=== PATIENT | male | born 1975 | race Caucasian/White ===

== ENCOUNTER 2016-10-05 12:26 | Emergency (ER) | payer SELFPAY ==
[~2016-10-05] VITALS: Ht 175.3 cm; Wt 83.9 kg
[2016-10-05 12:35] VITALS: BP 131/73
[2016-10-05] MEDS ORDERED: SULF1TAB24 PO (12:44)
[2016-10-05] MEDS ORDERED: DIPHTH,PERTUSS(ACELL),TET TOX 0.5 ML DISP.SYRIN. VAX IM ONE (12:45)
--- NOTE | 2016-10-05 12:45 | PHYS DOC ---
Adult General Chief Complaint Chief Complaint: INSECT BITE HPI HPI Patient is a 41 year old male with history of hep C who presents today with an insect bite to the right lateral neck. Patient states the area formed an abscess 2 days ago and he tried opening it up yesterday with no success. Review of Systems Review of Systems Constitutional: Denies fever or chills [] Eyes: Denies change in visual acuity, redness, or eye pain [] : Denies dysuria or hematuria [] Musculoskeletal: Denies back pain or joint pain [] Integument: Right lateral neck with an indurated area approximately 2 x 2 centimeters. The area is warm and tender to touch with a scabbed center. There is no fluctuance to the area. Neurologic: Denies headache, focal weakness or sensory changes [] Endocrine: Denies polyuria or polydipsia [] Physical Exam Physical Exam Constitutional: Well developed, well nourished, no acute distress, non-toxic appearance. [] HENT: Normocephalic, atraumatic, bilateral external ears normal, oropharynx moist, no oral exudates, nose normal. [] Eyes: PERRLA, EOMI, conjunctiva normal, no discharge. [] Neck: Normal range of motion, no tenderness, supple, no stridor. [] Cardiovascular:Heart rate regular rhythm, no murmur [] Lungs & Thorax: Bilateral breath sounds clear to auscultation [] Abdomen: Bowel sounds normal, soft, no tenderness, no masses, no pulsatile masses. [] Skin: Warm, dry, no erythema, no rash. [] Back: No tenderness, no CVA tenderness. [] Extremities: No tenderness, no cyanosis, no clubbing, ROM intact, no edema. [] Neurologic: Alert and oriented X 3, normal motor function, normal sensory function, no focal deficits noted. [] Psychologic: Affect normal, judgement normal, mood normal. [] EKG EKG [] Radiology/Procedures Radiology/Procedures [] Course & Med Decision Making Course & Med Decision Making Pertinent Labs and Imaging studies reviewed. (See chart for details) Patient has an abscess to the right lateral neck that is not ready to be drained. Discharged with Bactrim. Given tetanus in the ED. Warm compresses recommended to the area. Provided return precautions. Discharged in stable condition. Dragon Disclaimer Dragon Disclaimer This electronic medical record was generated, in whole or in part, using a voice recognition dictation system. Departure Departure Impression: Primary Impression: Abscess of neck Disposition: 01 HOME, SELF-CARE Condition: STABLE Referrals: NO PCP (PCP) Follow-up with your doctor in 1-2 weeks Patient Instructions: Abscess Additional Instructions: You were seen for an abscess on the right lateral neck. Keep the area clean and dry. Apply warm compresses to the area twice a day. Complete your antibiotics. Follow-up with the primary care doctor in the next 2 weeks. Come back to the ED if symptoms worsen. Scripts Sulfamethoxazole/Trimethoprim (BACTRIM DS TABLET) 1 Each Tablet 1 TAB PO BID, #20 TAB Prov: IVIS SHERWOOD APRN 10/05/16 IVIS SHERWOOD APRN Oct 05, 2016 12:45
== END 2016-10-05 12:50 | disposition home or self-care (01) ==
LOC: ER 12:26
DX: L02.11 Cutaneous abscess of neck (principal); Z86.19 Personal history of other infectious and parasitic diseases
CPT/HCPCS: 90471; 90715; 99283-25

== ENCOUNTER 2017-05-06 10:28 | Emergency (ER) | payer SELFPAY ==
[2017-05-06] MEDS: HYDROcodone/APAP 5/325MG 1 TAB TABLET PO (12:00)
== END 2017-05-06 12:18 | disposition home or self-care (01) ==
LOC: ER 10:28
DX: H60.11 Cellulitis of right external ear (principal); F12.10 Cannabis abuse, uncomplicated; F15.10 Other stimulant abuse, uncomplicated; Z86.19 Personal history of other infectious and parasitic diseases; Z91.041 Radiographic dye allergy status; Z86.14 Personal history of Methicillin resistant Staphylococcus aureus infection; Z96.22 Myringotomy tube(s) status; Z88.0 Allergy status to penicillin
CPT/HCPCS: 87071; 87075; 87205; 99284